=== PATIENT | male | born 1970 | race Caucasian/White ===

== ENCOUNTER → 2019-05-04 | Outpatient (CLI) | payer BC ==
--- NOTE | 2019-05-04 20:13 | CT ---
EXAMINATION TYPE: CT abdomen pelvis w con DATE OF EXAM: 05/04/2019 COMPARISON: 12/11/2015 HISTORY: RT and LT lower quadrant pain. CT DLP: 1945.70 mGycm Automated exposure control for dose reduction was used. TECHNIQUE: Helical acquisition of images was performed from the lung bases through the pelvis. CONTRAST: Performed with Oral Contrast and with IV Contrast, patient injected with 100 mL of Isovue 3 00. FINDINGS: LUNG BASES: No acute process. LIVER/GB: No significant abnormality is appreciated. PANCREAS: No significant abnormality is seen. SPLEEN: No significant abnormality is seen. ADRENALS: No significant abnormality is seen. KIDNEYS: No significant abnormality is seen. FREE AIR: No free air is visualized. RETROPERITONEAL ADENOPATHY: None visualized REPRODUCTIVE ORGANS: No significant abnormality is seen URINARY BLADDER: No significant abnormality is seen. PELVIC ADENOPATHY: None visualized. OSSEOUS STRUCTURES: No significant abnormality is seen. BOWEL: Proximal sigmoid demonstrates a 4 cm segment of circumferential mural thickening and indistin ctness of the mesenteric border, with edematous reticulation of the sigmoid mesocolon. These changes are consistent with acute mild/moderate diverticulitis. Eventual follow-up direct visualization of th e sigmoid colon is advised, to assure normal underlying mucosa. There are no associated abnormal gas or fluid collections and no bowel obstruction. There are numerous sigmoid and descending colon diverticula. OTHER: No acute vascular findings. IMPRESSION: MILD/MODERATE PROXIMAL SIGMOID DIVERTICULITIS.
== END | disposition home or self-care (01) ==
LOC: RADCTMAIN 15:48
PROVIDERS: ATTEND Family Medicine
DX: K57.32 Diverticulitis of large intestine without perforation or abscess without bleeding (principal)
CPT/HCPCS: 74177; Q9967